=== PATIENT | female | born 1995 | race Caucasian/White ===

== ENCOUNTER 2019-02-11 20:38 | Emergency (ER) | payer OTHER ==
--- NOTE | 2019-02-11 22:23 | EDPHYS ---
Physician Documentation [facility] Name: Kim Lopez Age: 24 yrs Sex: Female : 1995 Arrival Date: 02/11/2019 Time: 20:42 Bed 20 Private MD: ED Physician Edil Garcia HPI: 02/11 21:41 This 24 yrs old Female presents to ER via Ambulatory with complaints of Sore tw4 Throat. 21:41 The patient presents with sore throat. The patient describes throat pain as dry, tw4 scratchy. Onset: The symptoms/episode began/occurred 4 day(s) ago. Severity of symptoms: At their worst the symptoms were moderate, in the emergency department the symptoms are unchanged. Modifying factors: The symptoms are alleviated by nothing, the symptoms are aggravated by nothing. The patient has not experienced similar symptoms in the past. 21:41 The patient has been recently seen at an urgent care, this week, for similar tw4 complaints, was given a prescription for antibiotics, monospot, strep neg, culture negative. 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 - Social history:: Smoking status: Patient/guardian denies using tobacco. - Ebola Screening: : No symptoms or risks identified at this time. ROS: 21:41 Constitutional: Negative for fever, chills, and weight loss. tw4 21:41 ENT: Positive for sore throat. Exam: 21:41 Constitutional: This is a well developed, well nourished patient who is awake, alert, tw4 and in no acute distress. Vital Signs: 20:46 BP 139 / 98; Pulse 109; Resp 16; Temp 98.7; Pulse Ox 98% on R/A; Weight 90.72 kg; la1 Height 5 ft. 9 in. (175.26 cm); 21:31 BP 135 / 81; Pulse 93; Resp 18; Pulse Ox 98% on R/A; wh 20:46 Body Mass Index 29.53 (90.72 kg, 175.26 cm) la1 MDM: 20:59 Patient medically screened. tw4 21:41 Data reviewed: vital signs, nurses notes. Counseling: I had a detailed discussion with tw4 the patient and/or guardian regarding: the historical points, exam findings, and any diagnostic results supporting the discharge/admit diagnosis. 22:19 Differential diagnosis: cocksackie virus, group A strep tonsillitis, laryngitis, tw4 jimmie's angina, pharyngitis. Medical screen evaluation completed. EMTALA emergency medical condition absent. Special discussion: I discussed with the patient/guardian in detail that at this point there is no indication for admission to the hospital. It is understood, however, that if the symptoms persist or worsen the patient needs to return immediately for re-evaluation. ED course: Pt underwent medical screening exam, pt has no emergent condition and has been treated previously. Administered Medications: No medications were administered Disposition: 02/11/19 22:22 Discharged to Home. Impression: Encounter for general adult medical examination with abnormal findings, medical screeening exam, Acute pharyngitis, unspecified. - Condition is Stable. - Discharge Instructions: Pharyngitis, Sore Throat, Medical Screening Exam. - Medication Reconciliation Form, Thank You Letter, Antibiotic Education, Prescription Opioid Use form. - Follow up: Private Physician; When: Upon discharge from the Emergency Department; Reason: If symptoms return, Recheck today's complaints, Continuance of care. - Problem is new. - Symptoms have improved. Signatures: Alvin Valdivia RN RN laTerri Ratliff Edil Garcia MD MD tw4 Corrections: (The following items were deleted from the chart) 22:30 22:22 02/11/2019 22:22 Discharged to Home. Impression: Encounter for general adult medical examination with abnormal findings; medical screeening exam; Acute pharyngitis, unspecified. Condition is Stable. Forms are Medication Reconciliation Form, Thank You Letter, Antibiotic Education, Prescription Opioid Use. Follow up: Private Physician; When: Upon discharge from the Emergency Department; Reason: If symptoms return, Recheck today's complaints, Continuance of care. Problem is new. Symptoms have improved. tw4
--- NOTE | 2019-02-11 22:23 | ER ---
Nurse's Notes [facility] Name: Kim Lopez Age: 24 yrs Sex: Female : 1995 Arrival Date: 02/11/2019 Time: 20:42 Bed 20 Private MD: Diagnosis: Encounter for general adult medical examination with abnormal findings;medical screeening exam;Acute pharyngitis, unspecified Presentation: 02/11 20:45 Presenting complaint: Patient states: sore throat for about a week, Had a strep test, la1 strep culture, and mono spot on Friday and all of them were negative. I have been on Amox 875 since Friday night but its just getting worse. Transition of care: patient was not received from another setting of care. Onset of symptoms was February 11, 2019. Risk Assessment: Do you want to hurt yourself or someone else? Patient reports no desire to harm self or others. Initial Sepsis Screen: Does the patient meet any 2 criteria? No. Patient's initial sepsis screen is negative. Does the patient have a suspected source of infection? No. Patient's initial sepsis screen is negative. Care prior to arrival: None. 20:45 Method Of Arrival: Ambulatory la1 20:45 Acuity: TALIA 4 la1 Triage Assessment: 22:28 General: Behavior is calm, cooperative, appropriate for age. 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 - Social history:: Smoking status: Patient/guardian denies using tobacco. - Ebola Screening: : No symptoms or risks identified at this time. Screenin:29 Abuse screen: Denies threats or abuse. Denies injuries from another. Nutritional screening: No deficits noted. Tuberculosis screening: No symptoms or risk factors identified. Fall Risk None identified. Assessment: 21:29 General: Appears in no apparent distress. Pain: Complains of pain in Sore Throat Pain wh does not radiate. Pain currently is 6 out of 10 on a pain scale. Quality of pain is described as aching, Pain began Friday. Neuro: Level of Consciousness is awake, alert, obeys commands. Cardiovascular: Heart tones S1 S2 Capillary refill < 3 seconds. Respiratory: Airway is patent Respiratory effort is even, unlabored, Respiratory pattern is regular, symmetrical, Breath sounds are clear bilaterally. GI: Abdomen is flat, non-distended. : No signs and/or symptoms were reported regarding the genitourinary system. EENT: Throat is reddened. Derm: Skin is intact, is healthy with good turgor, Skin is pink, warm \T\ dry. normal. Musculoskeletal: Range of motion: intact in all extremities. 22:23 Reassessment: Patient appears in no apparent distress at this time. No changes from previously documented assessment. Patient and/or family updated on plan of care and expected duration. Pain level reassessed. Patient is alert, oriented x 3, equal unlabored respirations, skin warm/dry/pink. Vital Signs: 20:46 BP 139 / 98; Pulse 109; Resp 16; Temp 98.7; Pulse Ox 98% on R/A; Weight 90.72 kg; la1 Height 5 ft. 9 in. (175.26 cm); 21:31 BP 135 / 81; Pulse 93; Resp 18; Pulse Ox 98% on R/A; wh 20:46 Body Mass Index 29.53 (90.72 kg, 175.26 cm) la1 ED Course: 20:42 Patient arrived in ED. ag3 20:46 Triage completed. la1 20:46 Arm band placed on left wrist. la1 20:49 Terri Wilder is Primary Nurse. 20:59 Edil Garcia MD is Attending Physician. tw4 21:31 Patient has correct armband on for positive identification. Bed in low position. Call light in reach. Side rails up X 1. Pulse ox on. NIBP on. 22:28 No provider procedures requiring assistance completed. Patient did not have IV access during this emergency room visit. Administered Medications: No medications were administered Outcome: 22:22 Discharge ordered by . tw4 22:29 Discharged to home ambulatory. 22:29 Medical screen evaluation completed per provider. Patient declined treatment. 22:29 Condition: good 22:29 Discharge instructions given to patient, Instructed on POC Pharyngitis 22:30 Patient left the ED. Signatures: Alvin Valdivia RN RN la1 Terri Wilder Edil Garcia MD MD tw4 [place], [place] ag3
== END 2019-02-11 22:30 | disposition home or self-care (01) ==
LOC: ER 20:38
DX: Z00.01 Encounter for general adult medical examination with abnormal findings (principal); J02.9 Acute pharyngitis, unspecified
CPT/HCPCS: 99283